=== PATIENT | female | born 1955 | race Caucasian/White ===

== ENCOUNTER 2017-06-02 18:05 | Emergency (ER) | payer SELFPAY ==
[~2017-06-02] VITALS: Ht 162.6 cm; Wt 81.6 kg
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
--- NOTE | 2017-06-02 18:09 | NUR ---
PT WAS SEEN BY MD TRAN
[2017-06-02] MEDS ORDERED: IBUPROFEN 600 MG TABLET PO ONE ×2 (18:40→19:00)
[2017-06-02 18:42] VITALS: BP 136/88
--- NOTE | 2017-06-02 18:43 | NUR ---
Patient discharged to home in stable condition. Written and verbal after care instructions given. Patient verbalizes understanding of instruction.
== END 2017-06-02 18:43 | disposition home or self-care (01) ==
LOC: ER 18:06
DX: S40.011A Contusion of right shoulder, initial encounter (principal); S80.211A Abrasion, right knee, initial encounter; M54.5 Low back pain; I10 Essential (primary) hypertension; F41.9 Anxiety disorder, unspecified; V43.62XA Car passenger injured in collision with other type car in traffic accident, initial encounter; Y93.89 Activity, other specified; Y92.488 Other paved roadways as the place of occurrence of the external cause; Y99.8 Other external cause status
CPT/HCPCS: 99283; A4606; Z7610